=== PATIENT | female | born 1990 | race Caucasian/White ===

== ENCOUNTER 2020-10-26 04:13 | Emergency (ER) | payer MEDICAID, OTHER ==
[~2020-10-26] VITALS: Ht 157.5 cm; Wt 115.7 kg
[2020-10-26] MEDS ORDERED: KETOROLAC TROMETH 60MG/2ML VIAL IM ONE (04:45)
[2020-10-26] MEDS ORDERED: LORazepam 0.5 MG TAB PO ONE (05:15)
[2020-10-26 05:41] VITALS: BP 153/93
== END 2020-10-26 05:54 | disposition home or self-care (01) ==
LOC: ER 04:13
DX: S39.012A Strain of muscle, fascia and tendon of lower back, initial encounter (principal); I10 Essential (primary) hypertension; F41.9 Anxiety disorder, unspecified; M54.42 Lumbago with sciatica, left side; J45.909 Unspecified asthma, uncomplicated; X58.XXXA Exposure to other specified factors, initial encounter; Y93.89 Activity, other specified; Y92.89 Other specified places as the place of occurrence of the external cause; Y99.8 Other external cause status
CPT/HCPCS: 81025; 99282; J1885